=== PATIENT | female | born 1955 | race Caucasian/White ===

== ENCOUNTER 2022-12-12 10:15 | Outpatient (RCR) | payer MEDICARE, SELFPAY ==
[2022-11-21 09:00] VITALS: BP_SYST 150
--- NOTE | 2022-11-21 11:28 | OPREHPOC ---
Outpatient Therapy Plan of Care This is a Multidisciplinary Plan of Care that may contain components documented by all disciplines (PT, OT, and ST.) PT Problem 1 PT Problem #1 Knowledge Deficit PT Goal 1 Goal Pt to be IND with issued HEP Target Visit 8 PT Problem 2 PT Problem #2 Pain PT Goal 1 Goal Pt to report shoulder pain no greater than 3/10 in the last week. Target Visit 8 PT Goal 2 Goal Pt to report 75% improvement in overall symptoms Target Visit 8 PT Problem 3 PT Problem #3 Impaired Range of Motion PT Goal 1 Goal Pt to improve her active shoulder flexion ROM to 150 deg. Target Visit 8 PT Goal 2 Goal Pt to improve her active shoulder abduction to 150 deg Target Visit 8 PT Problem 4 PT Problem #4 Impaired Strength PT Goal 1 Goal Pt to be able to lift 5lb overhead without an increase in symptoms. Target Visit 8 PT Problem 5 PT Problem #5 Impaired Functional Mobil PT Goal 1 Goal Pt to report getting dressed without an increase in symptoms. Target Visit 8
--- NOTE | 2022-11-21 11:29 | PTOPEVAL1 ---
Assessment and note entered by Elizabeth Rodriguez, PT, DPT Evaluation Information Assessment Status Evaluation Diagnosis R shoulder pain Onset chronic Subjective Information Pt states she has had shoulder pain for years. She states she has a lot of property and over the years she thinks it is just wear and tear from all the yard work and maintenance. 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 Pt states about a month ago she started strengthening her shoulder with weights and this has really helped with her pain. Reach up over her head to get dressed has been the biggest limitations at this time. Reported Pain Level Pain Score 0: Self Report Assessment PT Clinical Summary Adelita presents to therapy today for her initial evaluation with a diagnosis of R shoulder pain. Today she demonstrates decreased strength and ROM when compared to her L shoulder. She also demonstrates rounded shoulders with increased thoracic kyphosis in sitting. Skilled therapy services are indicated to improve shoulder strength, ROM, stability, and function, to improve body awareness, and to return to PLOF without limitations. Plan of Care Interventions Electrical Stimulation,Hot Pack/Cold Pack,Manual Therapy,Neuro Re-education,Patient/Caregiver Educati,Therapeutic Activities,Therapeutic Exercise PT Services Indicated Yes Treatment Frequency and 1x/wk for 8 visits Duration These treatments will address the objective and functional deficits as defined above. The patient will be advanced safely and appropriately in order for the patient to progress towards his/her prior level of function. Additional exercises will be introduced and as well as a comprehensive home exercise program upon discharge, if needed, ?to ensure carryover of functional gains achieved in the clinic. This treatment plan has been reviewed and agreement upon by the patient.
--- NOTE | 2022-12-19 11:46 | PTOPDC ---
Assessment and note entered by Elizabeth Rodriguez, PT, DPT Evaluation Information Assessment Status Discharge - Pt Not Presen Diagnosis R shoulder pain Onset chronic Subjective Information Pt called and cancelled her appointment, stating she is doing really well and does not need to continue with therapy. Assessment PT Clinical Summary Adelita completed 4 visits of skilled therapy from 11/21/22 to 12/12/22 and will be discharged at this time.
== END 2022-12-20 15:13 | disposition home or self-care (01) ==
LOC: ANHGOSHPT 10:15
PROVIDERS: PCP Family Medicine; Visit Provider Family Medicine
DX: M25.511 Pain in right shoulder (principal)
CPT/HCPCS: 97110; 97112; 97161; 97530

== ENCOUNTER 2023-02-15 03:35 | Day surgery (SDC) | payer MEDICARE, SELFPAY ==
--- NOTE | 2023-02-10 09:58 | PC.NURSE ---
Report to the Outpatient Waiting Room, entrance under the green pavilion located off [facility], at time __0600 on date _02/15/23 . Planned Procedure Time: __729 . Time changes happen often and if your time is changed the preop area will call you the afternoon before. - You and your visitor will be asked to self-screen and do not enter if you have any COVID symptoms. - A mask is optional within the hospital at this time. Patients may have clear liquids (water, carbonated beverages, clear teas, apple juice) until 3 hours prior to surgery( 4:30 AM) with a maximum of 20 ounces. - No food from midnight until time of surgery - Infants may have breast milk until 4 hours before surgery, infant formula 6 hours prior to surgery. - Children will be allowed to drink immediately following surgery. If applicable, please bring a bottle or sippy cup to assist with drinking. Juice, water, soda, and popsicles are readily available. For infants on formula, please bring formula the day of surgery. Pacifiers are allowed. Take the following medications with a SIP of water the morning of surgery: ____LEVOTHYROXINE DO NOT STOP ANY OF YOUR OTHER PRESCRIPTION MEDICATIONS PRIOR TO SURGERY ?EXCEPT THE FOLLOWING Medications to discontinue per physician NONE Date to take last dose Please no make-up, nail guinean, hairspray, perfume, deodorant, or body powder the day of surgery. No jewelry (including any body piercings) or valuables the day of surgery, leave them at home. Please take a shower or bath the night before, or the morning of, surgery with an antibacterial soap. Wear comfortable, loose fitting clothing. Children are encouraged to wear pajamas. - Jewelry must be removed prior to entering the operating room. Rings and piercings that are not removed may be cut off. - The hospital will not accept responsibility for valuables. - Please leave all valuables, including medications, at home the day of surgery. If you are going home after surgery, a licensed entry driver operator must drive you home. - NO public transportation without another adult if you receive anesthesia. - We recommend that an adult stay with you for 24 hours following discharge. - We also recommend that you do not drive, make important decision, drink alcoholic beverages, or take any drugs that were not prescribed by your health care provider for at least 24 hours after your discharge time. For Pediatric surgeries, we recommend two adults accompany the child home. Follow any additional instructions given to you from your surgeon. If you or anyone in your household have experienced Covid symptoms in the past week, please notify your surgeon or the nurse liaison at the phone number below for possible testing. Telephone instructions given to __PATIENT and asked if any additional questions and then verbalized understanding. Patient advised to call surgeon office or pre surgery nurse liaison [phone] if any additional questions.
[2023-02-10 10:02] VITALS: BMI 26.8
[2023-02-15 06:15] VITALS: BP 117/63; PULSE 64; RESP 18; TEMP 36.7; O2SAT 100
[2023-02-15] MEDS: ACETAMINOPHEN 500 MG TABLET 1000 MG PO (06:20)
[2023-02-15] MEDS: LACTATED RINGERS 1,000 ML 30 ML IV CONT ×2 (06:25→08:31)
--- NOTE | 2023-02-15 06:44 | P.PNAN_ITS ---
Anes - Initial Pre Proc Eval Procedure: Operation Date: 02/15/23 07:30 Proposed Procedures p Hysteroscopy Dilation and Curettage - Lesley Shannon MD Date/Time: 02/15/23 06:44 Surgeon: Lesley Shannon MD Pre Op Diagnosis: Dysplasia of cervix Patient Data Age: 67 Gender: F Height: 1.61 m Weight: 70.5 kg Last Vital Signs Temp 36.7 C 02/15/23 06:15 Pulse 64 02/15/23 06:15 Resp 18 02/15/23 06:15 BP 117/63 02/15/23 06:15 Pulse Ox 100 02/15/23 06:15 O2 Del Method Room Air 02/15/23 06:15 Allergies Allergy/AdvReac Type Severity Reaction Status Date / Time No Known Allergies Allergy Unverified 02/15/23 06:12 Home Medications Medication Instructions Recorded Confirmed Type levothyroxine 75 mcg tablet 1 mcg PO DAILY 02/10/23 02/15/23 History metoprolol succinate 25 mg 25 mg PO HS 02/10/23 02/15/23 History tablet,extended release 24 hr Patient hx anesthesia problems: none Family hx anesthesia problems: none Results Review: All pre-operative results and documents have been reviewed as part of the pre- operative evaluation. [facility] Past Medical History Medical History (Updated 02/15/23 @ 06:44 by Louis Fuller MD) Hypothyroidism Overweight Social History Social History Smoking packs per day: 0.5 Smoking cigarettes per day: 10.0 Years smoked: 3 Smoking pack-years: 1.50 Smoking status: Former smoker Tobacco type: cigarettes Smoking end date: 02/27/97 Living arrangements: with family Spiritual care concerns: No Anes - Eval Final PreProcedure Day of Procedure 02/15/23 06:44 Patient weight: overweight Heart: regular rate and rhythm Lungs: clear to auscultation Airway: Mallampati scale class II Neurological: alert and oriented Last oral intake: >/= 8 hours ASA classification: II Emergent: no Anesthetic plan: proceed Anesthesia type and monitoring: general GIVS and standard monitoring Results Review: All pre-operative results and documents have been reviewed as part of the pre- operative evaluation. Informed Consent: The patient's anesthetic plan and its attendant risks and benefits were discussed with the patient/family/POA. Questions were solicited and answers provided to the satisfaction of the patient/family/POA.
--- NOTE | 2023-02-15 07:15 | WPDHPUPDATE1 ---
History and Physical Update Update Date/Time: 02/15/23 07:15 History and Physical has been reviewed, including an updated exam of the patient. There are NO changes in the patient's condition. Risks, benefits, and alternatives have been discussed and questions answered. Patient agrees to proceed with procedure.
--- NOTE | 2023-02-15 07:18 | PM.IMHP ---
H&P: HPI History of Present Illness Date/Time: 02/15/23 07:18 Chief Complaint: Cervical dysplasia Narrative: 67-year-old with thickened endometrium, cervical dysplasia, unsatisfactory evaluation the office. We have agreed to perform hysteroscopy D&C. She understands the risks. She understands that injuries may occur that result in hospitalization, more surgery, and severe illness. She understands risk of hemorrhage and infection. She denies any nausea, vomiting, fever, chills. She denies any chest pain or shortness of breath. Review of Systems Review of Systems: All systems reviewed & are unremarkable except as noted in HPI and below Constitutional: Constitutional: Denies chills, Denies fatigue, Denies fever(s) and Denies weakness Eyes: Eyes: Denies blurry vision, Denies change in vision, Denies loss of peripheral vision, Denies loss of vision, Denies other visual disturbances and Denies eye pain ENT: Denies vertigo, Denies dizziness, Denies hearing loss, Denies mouth pain, Denies nasal obstruction, Denies neck mass and Denies neck pain Cardiovascular: Cardiovascular: Denies chest pain, Denies diaphoresis, Denies syncope, Denies leg edema and Denies dyspnea Respiratory: Respiratory: Denies chest congestion, Denies cough, Denies hemoptysis, Denies dyspnea and Denies wheezing Gastrointestinal: Gastrointestinal: Denies abdominal pain, Denies constipation, Denies diarrhea, Denies nausea and Denies vomiting Genitourinary: Genitourinary: Denies hematuria, Denies change in libido, Denies nocturia, Denies genital lesions, Denies flank pain and Denies urinary urgency Musculoskeletal: Musculoskeletal: Denies abnormal gait, Denies back pain, Denies myalgias, Denies arthralgias, Denies joint swelling, Denies muscle weakness and Denies neck pain Integumentary/Breasts: Skin/Breast: Denies swelling, Denies breast pain, Denies breast mass, Denies dry skin, Denies nipple discharge, Denies unusual bruising and Denies jaundice Neurologic: Denies Neuro-related abnormal movements, Denies Abnormal speech present, Denies abnormal gait, Denies behavioral changes, Denies confusion, Denies vertigo, Denies dizziness, Denies syncope, Denies loss of vision, Denies memory loss, Denies convulsions and Denies weakness Psychiatric: Psychiatric: Denies abnormal sleep pattern, Denies behavioral changes, Denies change in libido, Denies confusion, Denies depression, Denies anhedonia and Denies memory loss Endocrine: Endocrine: Reports no additional endocrine complaints, Denies change in libido and Denies fatigue Hematologic/Lymphatic: Hematologic/Lymphatic: Reports no additional hematologic/lymphatic complaints Allergic/Immunologic: Allergic/Immunologic: Reports no additional allergic/immunologic complaints and Denies wheezing PMFSH Past Medical History Medical History (Updated 02/15/23 @ 07:21 by Lesley Shannon MD) Hypothyroidism Overweight Social History Social History Smoking packs per day: 0.5 Smoking cigarettes per day: 10.0 Years smoked: 3 Smoking pack-years: 1.50 Smoking status: Former smoker Tobacco type: cigarettes Smoking end date: 02/27/97 Living arrangements: with family Spiritual care concerns: No Meds Home Medications and Allergies Home Medications Medication Instructions Recorded Confirmed Type levothyroxine 75 mcg tablet 1 mcg PO DAILY 02/10/23 02/15/23 History metoprolol succinate 25 mg 25 mg PO HS 02/10/23 02/15/23 History tablet,extended release 24 hr Allergies Allergy/AdvReac Type Severity Reaction Status Date / Time No Known Allergies Allergy Unverified 02/15/23 06:12 Vital Signs Vital Signs - 24 hr 02/15/23 06:15 Temperature 98.1 F Pulse Rate 64 Respiratory Rate 18 Blood Pressure 117/63 Pulse Oximetry 100 Oxygen Delivery Room Air Exam Const: General: cooperative, healthy appearing, comfortable and no acute distress O
[2023-02-15] MEDS: LIDOCAINE HCL 1% LOCAL INJ 10 ML VIAL INFILTRATE (07:47)
[2023-02-15 08:31] VITALS: BP 114/80; PULSE 98; RESP 18; O2SAT 97
[2023-02-15] MEDS: fentaNYL CITRATE INJ (*CRX) 100 MCG/2 ML VIAL 25 MCG IV PUSH ×2 (08:37→08:40)
--- NOTE | 2023-02-15 08:40 | W.PM.PROC2 ---
Procedure Note - Detailed Date of Procedure 02/15/23 Pre-op Diagnosis Dysplasia of cervix Post-op Diagnosis Same Procedure Performed Hysteroscopy D&C Surgeon Lesley Shannon MD Anesthesia MAC Indications abnormal uterine bleeding Description of Procedure the patient was taken to the operating room.? She was prepped and draped in the dorsal lithotomy position after induction of MAC anesthesia. Speculum was placed in the vagina.?Attempted to dissect open the ectocervical os of the cervix. This was done with scissors. It failed. Could not identify the endocervical canal. A coated speculum was placed in the vagina.? The cervix was injected at 3 and 9:00 a.m. with lidocaine.? A electrode loop was used to excise the central portion of the cervix in 1 motion.? This was from 9:00 to 3:00.? After excision of that tissue the cut surface was cauterized with ball cautery.? The Monsel solution was applied to the cut surfaces well. The cervix was grasped with a tenaculum. The cervix was dilated about 1 cm. The hysteroscope was inserted. The intrauterine cavity and endocervix were evaluated. Hysteroscope was withdrawn. A medium-size curette was used to curettage all the surfaces were within the endometrial cavity. the sample was collected on Telfa and sent to pathology. Endocervical curettage was performed with a curved working curette. Samples collected on a Telfa. The hysteroscope was reinserted and the above findings were noted. Patient tolerated the procedure well. The speculum and tenaculum were removed. She was taken recovery room in stable condition. Sponge lap and needle counts were correct x2. Estimated Blood Loss 40 Drains No Packing No Pathology Yes Complications No immediate complications Condition Stable Disposition PACU
[2023-02-15 09:00] VITALS: BP 139/74; PULSE 60; RESP 18; O2SAT 100
[2023-02-15] MEDS: oxyCODONE HCL (*CRX) 5 MG TAB IR PO (09:24)
[2023-02-15 09:30] VITALS: BP 151/71; PULSE 53; RESP 16
[2023-02-15 10:00] VITALS: BP 164/70; PULSE 52; RESP 16
== END 2023-02-15 10:15 | disposition home or self-care (01) ==
PROVIDERS: PCP Family Medicine; Visit Provider Obstetrics & Gynecology
PROC: 0U5B8ZZ Destruction of Endometrium, Via Natural or Artificial Opening Endoscopic (ICD-10-PCS; CPT 58563; principal; 2023-02-15 07:30)
DX: N85.8 Other specified noninflammatory disorders of uterus (principal); N72 Inflammatory disease of cervix uteri; E03.9 Hypothyroidism, unspecified; Z87.891 Personal history of nicotine dependence
CPT/HCPCS: 57522; 88305; 88307; A9270; J1885; J2250; J2405; J2704; J3010; J7120